=== PATIENT | male | born 1970 | race Caucasian/White ===

== ENCOUNTER → 2016-08-19 | Outpatient (CLI) | payer OTHER ==
--- NOTE | 2016-08-19 23:09 | MR ---
EXAMINATION TYPE: MR thoracic spine wo/w con DATE OF EXAM: 08/19/2016 5:02 PM COMPARISON: NONE HISTORY: Mid/lower back pain x several years, no surgery/trauma CONTRAST: Standard multiplanar, multisequence MRI departmental protocol utilizing 17 mL intravenous MultiHance gadolinium contrast. FINDINGS: The thoracic vertebra have fairly normal spacing and alignment. Thoracic spinal cord has no rmal signal pattern without evidence of edema or mass. There is no paraspinal mass. There is no compr ession fracture. I see no focal bone destruction. There are small posterior disc bulges at C5-6 C6-7. There is a small posterior thoracic disc bulge at T6-7 and T7-8. There is no impingement on the spi nal canal. There is no pathologic enhancement. IMPRESSION: Negative MR scan of the thoracic spine. No evidence of spinal stenosis or any significant thoracic di sc herniation. No fracture.
== END | disposition home or self-care (01) ==
LOC: RADMRIMAIN 15:54
PROVIDERS: ATTEND Physician Assistant Medical
DX: M54.6 Pain in thoracic spine (principal)
CPT/HCPCS: 72157; A9577

== ENCOUNTER 2018-03-16 15:23 | Inpatient (IN) | payer OTHER ==
[2018-03-16] MEDS ORDERED: SODIUM CHLORIDE 0.9% 1,000 ML IV STA (16:04)
[2018-03-16 16:30] LABS: Basophils % (A) 0 %; Eosinophils # (A) 0.1 k/uL (0-0.7); Eosinophils % (A) 2 %; HCT 44.1 % (39.0-53.0); HGB 15.1 gm/dL (13.0-17.5); Lymphocytes # (A) 1.9 k/uL (1.0-4.8); Lymphocytes % (A) 31 %; MCH 30.6 pg (25.0-35.0); MCHC 34.2 g/dL (31.0-37.0); MCV 89.4 fL (80.0-100.0); Mean Platelet Volume 6.8; Monocytes # (A) 0.4 k/uL (0-1.0); Monocytes % (A) 6 %; Neutrophils # (A) 3.6 k/uL (1.3-7.7); Neutrophils % (A) 59 %; Platelet Count 219 k/uL (150-450); RBC 4.93 m/uL (4.30-5.90); RDW 12.8 % (11.5-15.5); WBC 6.2 k/uL (3.8-10.6)
[2018-03-16 16:38] LABS: ALT 42 U/L (21-72); AST 28 U/L (17-59); Albumin 4.7 g/dL (3.5-5.0); Alkaline Phosphatase 84 U/L (38-126); Amylase 74 U/L (30-110); Anion Gap 12 mmol/L; Blood Urea Nitrogen 11 mg/dL (9-20); Calcium 9.3 mg/dL (8.4-10.2); Carbon Dioxide 26 mmol/L (22-30); Chloride 106 mmol/L (98-107); Glucose 94 mg/dL (74-99); Lipase 96 U/L (23-300); Potassium 4.8 mmol/L (3.5-5.1); Sodium 144 mmol/L (137-145); Total Bilirubin 0.6 mg/dL (0.2-1.3); Total Protein 7.7 g/dL (6.3-8.2)
--- NOTE | 2018-03-16 16:38 | ED ---
General Adult HPI - General Chief complaint: Abdominal Pain Stated complaint: US on [facility]bladder [facility] Time Seen by Provider: 03/16/18 15:39 Source: patient Mode of arrival: ambulatory Limitations: no limitations - History of Present Illness Initial comments: 47-year-old male patient presents to the emergency department today for evaluation of right upper back pain. Patient states he has been having this pain consistently over the last 6 weeks. Patient states the pain is constant and always present. Patient states he has had pain into her shoulder and radiating down the right arm. Patient states occasionally the pain will worsen causing him to "catch his breath". Patient states more recently he has had some discomfort to the right anterior chest. Patient states that he has had some increase in the pain after eating a greasy meal. Patient states he has had some mild epigastric discomfort and nausea as well. Patient denies any fevers or chills. Denies any vomiting. States he has had normal bowel movements. Denies any difficulties with urination. Denies any light colored stool, hematochezia, or melena. Denies any hematuria. Patient has never had abdominal surgery in the past. Patient denies any recent rash, back pain, numbness, tingling, dizziness, weakness, hematuria, dysuria, urinary urgency, urinary frequency, headache, visual changes, or any other complaints. - Related Data Home Medications Medication Instructions Recorded Confirmed Meloxicam [Mobic] 7.5 mg PO HS 03/16/18 03/16/18 Allergies Allergy/AdvReac Type Severity Reaction Status Date / Time No Known Allergies Allergy Verified 03/16/18 16:29 Review of Systems ROS Statement: Those systems with pertinent positive or pertinent negative responses have been documented in the HPI. ROS Other: All systems not noted in ROS Statement are negative. Past Medical History Additional Past Medical History / Comment(s): back pain History of Any Multi-Drug Resistant Organisms: None Reported Past Surgical History: Orthopedic Surgery, Tonsillectomy Additional Past Surgical History / Comment(s): right shoulder surgery, right thumb, left foot Past Anesthesia/Blood Transfusion Reactions: No Reported Reaction Past Psychological History: No Psychological Hx Reported Smoking Status: Never smoker Past Alcohol Use History: None Reported Past Drug Use History: None Reported - Past Family History Mother Family Medical History: AFIB, Liver Disease Additional Family Medical History / Comment(s): alcoholic Father Family Medical History: Coronary Artery Disease (CAD), Myocardial Infarction ([facility] ) General Exam Limitations: no limitations General appearance: alert, in no apparent distress, other (This is a well- developed, well-nourished adult male patient in no acute distress. Vital signs upon presentation are temperature 98.2F, pulse 76, respirations 16, blood pressure 161/73, pulse ox 99% on room air.) Eye exam: Present: normal appearance, PERRL, EOMI. Absent: scleral icterus, conjunctival injection, periorbital swelling ENT exam: Present: normal exam, normal oropharynx, mucous membranes moist Respiratory exam: Present: normal lung sounds bilaterally. Absent: respiratory distress, wheezes, rales, rhonchi, stridor Cardiovascular Exam: Present: regular rate, normal rhythm, normal heart sounds. Absent: systolic murmur, diastolic murmur, rubs, gallop, clicks GI/Abdominal exam: Present: soft, tenderness (Mild midepigastric tenderness), normal bowel sounds. Absent: distended, guarding, rebound, rigid Extremities exam: Present: normal inspection, full ROM, normal capillary refill , other (Skin to the upper extremities is pink, warm, and dry. Cap refills less than 3 seconds. Radial pulses 2+ and equal bilaterally.). Absent: tenderness, pedal edema, joint swelling, calf tenderness Back exam: Present: normal inspection. Absent: tenderness Neurological exam: Present: alert, oriented X3, CN II-XII intact Psychiatric exam: Present: normal affect, normal mood Skin exam: Present: warm, dry, intact, normal color. Absent: rash Course Vital Signs 03/16/18 03/16/18 15:27 18:29 Temperature 98.2 F Pulse Rate 76 84 Respiratory 16 18 Rate Blood Pressure 161/73 135/77 O2 Sat by Pulse 99 99 Oximetry EKG Findings - EKG Comments: EKG Findings:: EKG obtained at 1617 shows normal sinus rhythm with a ventricular rate of 70, MS interval 1:30, QRS duration 100, QTC 414, QTC 447. No evidence of ST elevation or depression. Medical Decision Making - Medical Decision Making 47-year-old male patient percents into the emergency department today for evaluation of right shoulder and midepigastric abdominal pain. Physical examination did reveal some midepigastric tenderness. Negative Stein sign. Vital signs are stable with no elevated temperature. Labs reviewed and are unremarkable. Ultrasound of the right upper quadrant abdomen was obtained and did show a thickened gallbladder wall with gallstones consistent with acute and chronic cholecystitis. My attending Dr. Buchanan did discuss the case with the surgeon relationship associate Dr. Yuan who accepts admission. Antibiotics, pain management , and nausea medication will be provided. Patient will be NPO at midnight. - Lab Data Result diagrams: 03/16/18 16:15 03/16/18 16:15 Lab Results 03/16/18 03/16/18 03/16/18 Range/Units 16:15 16:15 16:15 WBC 6.2 (3.8-10.6) k/uL RBC 4.93 (4.30-5.90) m/uL Hgb 15.1 (13.0-17.5) gm/dL Hct 44.1 (39.0-53.0) % MCV 89.4 (80.0-100.0) fL MCH 30.6 (25.0-35.0) pg MCHC 34.2 (31.0-37.0) g/dL RDW 12.8 (11.5-15.5) % Plt Count 219 (150-450) k/uL Neutrophils % 59 % Lymphocytes % 31 % Monocytes % 6 % Eosinophils % 2 % Basophils % 0 % Neutrophils # 3.6 (1.3-7.7) k/uL Lymphocytes # 1.9 (1.0-4.8) k/uL Monocytes # 0.4 (0-1.0) k/uL Eosinophils # 0.1 (0-0.7) k/uL Basophils # 0.0 (0-0.2) k/uL Sodium 144 (137-145) mmol/L Potassium 4.8 (3.5-5.1) mmol/L Chloride 106 (98-107) mmol/L Carbon Dioxide 26 (22-30) mmol/L Anion Gap 12 mmol/L BUN 11 (9-20) mg/dL Creatinine 0.80 (0.66-1.25) mg/dL Est GFR (CKD-EPI)AfAm >90 (>60 ml/min/1.73 sqM) Est GFR (CKD-EPI)NonAf >90 (>60 ml/min/1.73 sqM) Glucose 94 (74-99) mg/dL Calcium 9.3 (8.4-10.2) mg/dL Total Bilirubin 0.6 (0.2-1.3) mg/dL AST 28 (17-59) U/L ALT 42 (21-72) U/L Alkaline Phosphatase 84 (38-126) U/L Total Creatine Kinase 69 (55-170) U/L CK-MB (CK-2) 0.5 (0.0-2.4) ng/mL CK-MB (CK-2) Rel Index 0.7 Troponin I <0.012 (0.000-0.034) ng/mL Total Protein 7.7 (6.3-8.2) g/dL Albumin 4.7 (3.5-5.0) g/dL Amylase 74 (30-110) U/L Lipase 96 (23-300) U/L Urine Color Urine Appearance (Clear) Urine pH (5.0-8.0) Ur Specific Converse (1.001-1.035) Urine Protein (Negative) Urine Glucose (UA) (Negative) Urine Ketones (Negative) Urine Blood (Negative) Urine Nitrite (Negative) Urine Bilirubin (Negative) Urine Urobilinogen (<2.0) mg/dL Ur Leukocyte Esterase (Negative) 03/16/18 Range/Units 18:30 WBC (3.8-10.6) k/uL RBC (4.30-5.90) m/uL Hgb (13.0-17.5) gm/dL Hct (39.0-53.0) % MCV (80.0-100.0) fL MCH (25.0-35.0) pg MCHC (31.0-37.0) g/dL RDW (11.5-15.5) % Plt Count (150-450) k/uL Neutrophils % % Lymphocytes % % Monocytes % % Eosinophils % % Basophils % % Neutrophils # (1.3-7.7) k/uL Lymphocytes # (1.0-4.8) k/uL Monocytes # (0-1.0) k/uL Eosinophils # (0-0.7) k/uL Basophils # (0-0.2) k/uL Sodium (137-145) mmol/L Potassium (3.5-5.1) mmol/L Chloride (98-107) mmol/L Carbon Dioxide (22-30) mmol/L Anion Gap mmol/L BUN (9-20) mg/dL Creatinine (0.66-1.25) mg/dL Est GFR (CKD-EPI)AfAm (>60 ml/min/1.73 sqM) Est GFR (CKD-EPI)NonAf (>60 ml/min/1.73 sqM) Glucose (74-99) mg/dL Calcium (8.4-10.2) mg/dL Total Bilirubin (0.2-1.3) mg/dL AST (17-59) U/L ALT (21-72) U/L Alkaline Phosphatase (38-126) U/L Total Creatine Kinase (55-170) U/L CK-MB (CK-2) (0.0-2.4) ng/mL CK-MB (CK-2) Rel Index Troponin I (0.000-0.034) ng/mL Total Protein (6.3-8.2) g/dL Albumin (3.5-5.0) g/dL Amylase (30-110) U/L Lipase (23-300) U/L Urine Color Light Yellow Urine Appearance Clear (Clear) Urine pH 6.5 (5.0-8.0) Ur Specific Converse 1.005 (1.001-1.035) Urine Protein Negative (Negative) Urine Glucose (UA) Negative (Negative) Urine Ketones Negative (Negative) Urine Blood Negative (Negative) Urine Nitrite Negative (Negative) Urine Bilirubin Negative (Negative) Urine Urobilinogen <2.0 (<2.0) mg/dL Ur Leukocyte Esterase Negative (Negative) - Radiology Data Radiology results: report reviewed, image reviewed Ultrasound of the right upper quadrant abdomen was obtained. Report was reviewed in its entirety. Impression by Dr. Howe shows gallbladder wall thickening and gallstones consistent with acute and chronic cholecystitis. No dilated ducts. Disposition Clinical Impression: Acute cholecystitis Disposition: ADMITTED IP TO THIS [facility] Condition: Serious Referrals: Nba Anderson MD [Primary Care Provider] - 1-2 days Decision to Admit Reason: Admit from [facility] Decision Date: 03/16/18 Decision Time: 19:40
[2018-03-16 16:49] LABS: Creatine Kinase 69 U/L (55-170)
[2018-03-16 17:02] LABS: Creatine Kinase MB 0.5 ng/mL (0.0-2.4); Troponin I <0.012 ng/mL (0.000-0.034)
--- NOTE | 2018-03-16 17:47 | US ---
EXAMINATION TYPE: US abdomen limited DATE OF EXAM: 03/16/2018 COMPARISON: NONE CLINICAL HISTORY: Pain. shoulder and abd pain EXAM MEASUREMENTS: Liver Length: 13.9 cm Gallbladder Wall: 0.4 cm CBD: 0.4 cm Right Kidney: 11.5 x 4.4 x 4.9cm overlying bowel gas Pancreas: not seen due to bowel gas Liver: wnl Gallbladder: contracted with possible stone within and thickened wall Evidence for sonographic Stein's sign: yes CBD: wnl Right Kidney: wnl IMPRESSION: Gallbladder wall thickening and gallstones consistent with acute and chronic cholecystiti s. No dilated ducts.
[2018-03-16 18:40] LABS: Appearance,Urine Clear (Clear); Bilirubin,Urine Negative (Negative); Blood,Urine Negative (Negative); Color,Urine Light Yellow; Glucose,Urine (UA) Negative (Negative); Ketones,Urine Negative (Negative); Leukocyte Esterase,Urine Negative (Negative); Nitrite,Urine Negative (Negative); PH, Urine 6.5 (5.0-8.0); Protein,Urine Negative (Negative); Specific Gravity,Urine 1.005 (1.001-1.035); Urobilinogen,Urine <2.0 mg/dL (<2.0)
[2018-03-16] MEDS ORDERED: ACETAMINOPHEN TAB 325 MG TAB PO PRN (19:33)
[2018-03-16] MEDS ORDERED: ONDANSETRON 4 MG/2 ML VIAL IVP PRN (19:33)
[2018-03-16] MEDS ORDERED: NALOXONE 0.4 MG/ML 1 ML VIAL IV PRN (19:33)
[2018-03-16] MEDS ORDERED: MORPHINE SULFATE 4 MG/ML SYRINGE IV PRN (19:33)
[2018-03-16] MEDS ORDERED: PIPERACILLIN-TAZOBACTAM 3.375 GM in DEXTROSE/WATER 1 50ML.BAG IVPB STA (19:37)
[2018-03-16] MEDS: SODIUM CHLORIDE 0.9% 1,000 ML IV SCH (20:22)
[2018-03-16 23:47] VITALS: BMI 27.5
[2018-03-17] MEDS: PIPERACILLIN-TAZOBACTAM 3.375 GM in DEXTROSE/WATER 1 50ML.BAG IVPB SCH ×3 (05:33→21:44)
[2018-03-17] MEDS: SODIUM CHLORIDE 0.9% 1,000 ML IV SCH ×2 (09:01→21:44)
--- NOTE | 2018-03-17 10:28 | P.GSHP ---
History of Present Illness H&P Date: 03/17/18 Chief Complaint: Right upper back pain mid epigastric 47-year-old male who presented to the emergency room on the day of admission to be evaluated for persistent right upper back pain radiating to mid epigastric area. Patient stated that he had been having the pain for several days. It seemed that the pain with increase in the 80s greasy meal. Patient stated he would have mid epigastric discomfort felt nauseated.vomit. Patient stated he had a normal bowel movement the day before. Denied any light colored stool. No blood in the stool. Additionally patient stated he recently had developed some discomfort going down the right anterior chest wall. Patient stated the symptoms become more symptomatic presented to be evaluated for the above symptoms. In the emergency room ultrasound right upper quadrant of the abdomen showed thickening gallbladder wall with gallstones consistent with acute and chronic cholecystitis. Patient states that he had a cardiac workup for left anterior chest wall discomfort several years ago. The stress test was unremarkable no indication of any coronary artery disease. Patient states he is a very active individual with activity does not experience any chest discomfort positive family history of gallbladder disease mother and sister Patient denies any dizziness lightheadedness shortness of breath or chest pain when questioning continues to report has mid epigastric discomfort with a nausea sensation Past surgical history no abdominal surgeries orthopedic procedures and a tonsillectomy Past medical history osteoarthritis lumbar spine per patient report - Review of Systems Comment: Essentially unremarkable except as mentioned in the present illness Past Medical History Additional Past Medical History / Comment(s): back pain History of Any Multi-Drug Resistant Organisms: None Reported Past Surgical History: Orthopedic Surgery, Tonsillectomy Additional Past Surgical History / Comment(s): right shoulder surgery, right thumb, left foot Past Anesthesia/Blood Transfusion Reactions: No Reported Reaction Past Psychological History: No Psychological Hx Reported Smoking Status: Never smoker Past Alcohol Use History: None Reported Past Drug Use History: None Reported - Past Family History Mother Family Medical History: AFIB, Liver Disease Additional Family Medical History / Comment(s): alcoholic Father Family Medical History: Coronary Artery Disease (CAD), Myocardial Infarction ([facility] ) Medications and Allergies Home Medications Medication Instructions Recorded Confirmed Type Meloxicam [Mobic] 7.5 mg PO HS 03/16/18 03/16/18 History Allergies Allergy/AdvReac Type Severity Reaction Status Date / Time No Known Allergies Allergy Verified 03/16/18 16:29 Surgical - Exam Vital Signs Temp Pulse Resp BP Pulse Ox 98.2 F 76 16 161/73 99 03/16/18 15:27 03/16/18 15:27 03/16/18 15:27 03/16/18 15:27 03/16/18 15:27 GENERAL APPEARANCE: 47-year-old male patient is alert, oriented 3, in no acute distress sitting up in bed. VITAL SIGNS: Reviewed HEENT: Head is normocephalic and atraumatic. Pupils are equal and reactive. The nares are patent. Oropharynx is clear without lesions. NECK: Supple without lymphadenopathy. Traches midline. HEART: S1, S2. Regular rate and rhythm. Denying chest pain no murmur LUNGS: No crackles or wheezes are heard. Good air movement bilaterally ABDOMEN: Soft, mild tenderness right upper quadrant nondistended with good bowel sounds. No peritoneal signs. No palpable organomegaly or masses. EXTREMITIES: Normal skin color and turgor. No cyanosis, rash, ulceration, clubbing or edema. Radial pedal pulses are 2/4 bilaterally. NEUROLOGICAL: No focal deficits. Strength and sensation are grossly intact. Results - Labs 03/16/18 16:15 03/16/18 16:15 Diabetes panel 03/16/18 Range/Units 16:15 Sodium 144 (137-145) mmol/L Potassium 4.8 (3.5-5.1) mmol/L Chloride 106 (98-107) mmol/L Carbon Dioxide 26 (22-30) mmol/L BUN 11 (9-20) mg/dL Creatinine 0.80 (0.66-1.25) mg/dL Glucose 94 (74-99) mg/dL Calcium 9.3 (8.4-10.2) mg/dL AST 28 (17-59) U/L ALT 42 (21-72) U/L Alkaline Phosphatase 84 (38-126) U/L Total Protein 7.7 (6.3-8.2) g/dL Albumin 4.7 (3.5-5.0) g/dL Calcium panel 03/16/18 Range/Units 16:15 Calcium 9.3 (8.4-10.2) mg/dL Albumin 4.7 (3.5-5.0) g/dL Pituitary panel 03/16/18 Range/Units 16:15 Sodium 144 (137-145) mmol/L Potassium 4.8 (3.5-5.1) mmol/L Chloride 106 (98-107) mmol/L Carbon Dioxide 26 (22-30) mmol/L BUN 11 (9-20) mg/dL Creatinine 0.80 (0.66-1.25) mg/dL Glucose 94 (74-99) mg/dL Calcium 9.3 (8.4-10.2) mg/dL Adrenal panel 03/16/18 Range/Units 16:15 Sodium 144 (137-145) mmol/L Potassium 4.8 (3.5-5.1) mmol/L Chloride 106 (98-107) mmol/L Carbon Dioxide 26 (22-30) mmol/L BUN 11 (9-20) mg/dL Creatinine 0.80 (0.66-1.25) mg/dL Glucose 94 (74-99) mg/dL Calcium 9.3 (8.4-10.2) mg/dL Total Bilirubin 0.6 (0.2-1.3) mg/dL AST 28 (17-59) U/L ALT 42 (21-72) U/L Alkaline Phosphatase 84 (38-126) U/L Total Protein 7.7 (6.3-8.2) g/dL Albumin 4.7 (3.5-5.0) g/dL Assessment and Plan Assessment: Impression Present on admission persistent right upper quadrant pain radiating to mid epigastric suspect due to acute on chronic cholecystitis Ultrasound of the abdomen obtained in the emergency room showed gallbladder wall thickening with gallstones consistent with acute on chronic cholecystitis no dilated ducts Plan Scheduled for OR today for a lap cholecystectomy Keep nothing by mouth for procedure Pain control IV fluid for hydration IV Zosyn every 8 hours as ordered anti-emetics as needed DVT and GI prophylaxis The above impression and plan of care have been discussed and directed by signing physician. Marbella Iniguez nurse practitioner acting as scribe for signing physician.
[2018-03-17] MEDS: PANTOPRAZOLE 40 MG/10 ML VIAL IVP SCH (12:29)
[2018-03-17] MEDS ORDERED: IV FLUID CONTINUATION 1,000 ML IV ONE (13:59)
[2018-03-17] MEDS ORDERED: ONDANSETRON 4 MG/2 ML VIAL IVP ONE (14:23)
[2018-03-17] MEDS ORDERED: HEPARIN SODIUM,PORCINE 5,000 UNIT/ML 1 ML VIAL SQ ONE (14:25)
[2018-03-17] MEDS ORDERED: DEXAMETHASONE SOD PHOS (MDV) 100 MG/10 ML VIAL IVP ONE (14:25)
--- NOTE | 2018-03-17 14:26 | P.PN ---
Progress Note - Text Progress Note Date: 03/17/18 The patient has complaints of right quadrant pain. His ultrasound is consistent with chronic and acute cholecystitis. The patient will undergo laparoscopic ostectomy today.
[2018-03-17] MEDS ORDERED: MIDAZOLAM 2 MG/2 ML VIAL ONE (15:06)
[2018-03-17] MEDS ORDERED: fentaNYL (PF) 50 MCG/ML 2 ML AMP ONE (15:06)
[2018-03-17] MEDS ORDERED: GLYCOPYRROLATE 0.2 MG/ML 2 ML VIAL ONE (15:06)
[2018-03-17] MEDS ORDERED: NEOSTIGMINE 1 MG/ML 10 ML VIAL ONE (15:06)
[2018-03-17] MEDS ORDERED: ROCURONIUM BROMIDE 10 MG/ML 10 ML VIAL IV ONE (15:06)
[2018-03-17] MEDS ORDERED: SUCCINYLCHOLINE CHLORIDE 100 MG/5 ML SYR IV ONE (15:06)
[2018-03-17] MEDS ORDERED: LIDOCAINE 1% INJ 10MG/ML (20 ML MDV) ONE (15:06)
[2018-03-17] MEDS ORDERED: KETOROLAC 30 MG/ML 1 ML VIAL ONE (15:06)
[2018-03-17] MEDS ORDERED: PROPOFOL 10 MG/ML 20 ML VIAL IV ONE (15:06)
[2018-03-17] MEDS ORDERED: ONDANSETRON 4 MG/2 ML VIAL ONE (15:06)
[2018-03-17] MEDS ORDERED: LACTATED RINGERS 1,000 ML IV ONE (15:22)
[2018-03-17] MEDS ORDERED: BUPIVACAIN-EPI 0.25%-1:200,000 30 ML VIAL SQ ONE (15:32)
--- NOTE | 2018-03-17 16:01 | P.OP ---
Date of Procedure: 03/17/18 Preoperative Diagnosis: Cholecystitis Postoperative Diagnosis: Cholecystitis Procedure(s) Performed: Laparoscopic cholecystectomy Anesthesia: TAVIA Surgeon: Faizan Yuan Estimated Blood Loss (ml): 5 Pathology: other (Gallbladder) Condition: stable Disposition: PACU Description of Procedure: The patient was placed on the operating table. The patient received a general endotracheal tube anesthesia. The patients abdomen was prepped and draped in the usual sterile fashion. Through an infraumbilical stab incision, the fascia of the anterior abdominal wall was grasped with a pair of Kochers and then the Veress needle was placed in the peritoneal cavity. Position of the Veress needle was confirmed with positive drop test. The abdomen was then insufflated. After adequate insufflation, the 10 mm trocar was placed in the peritoneal cavity. Following this the laparoscope was placed in the peritoneal cavity. The patient was placed in the head-up, right side up position and then a 5 mm trocar was placed in the right lateral and right subcostal position under direct visualization. A 8 mm trocar was placed in the epigastric position. The gallbladder was grasped in the fundus and infundibulum. Traction on the gallbladder was placed in the lateral and the cephalad positions. The triangle of Calot was visualized.. The cystic duct was bluntly dissected until the union of the cystic duct and common bile duct was seen. The cystic duct was then divided and sealed with the Harmonic scissors. A PDS Endoloop was then placed throughout the cystic duct stump. The cystic artery divided and sealed with the Harmonic scissors. The gallbladder was then removed from the liver bed using Harmonic scissors. The gallbladder was then extracted through the epigastric port site. Operative field was checked for any bleeding spots and Harmonic scissors was used to coagulate the liver bed. The abdomen was irrigated. The trocars were removed. The skin was closed using interrupted 3-0 Vicryl suture. Dermabond dressing were applied. The patient tolerated the procedure well.
[2018-03-17] MEDS: fentaNYL (PF) 50 MCG/ML 2 ML AMP IVP ONE ×2 (16:02→16:07)
[2018-03-17] MEDS: HYDROmorphone 0.5 MG/0.5 ML SYRINGE IVP ONE ×4 (16:15→16:37)
[2018-03-18] MEDS: PIPERACILLIN-TAZOBACTAM 3.375 GM in DEXTROSE/WATER 1 50ML.BAG IVPB SCH (05:31)
[2018-03-18] MEDS: SODIUM CHLORIDE 0.9% 1,000 ML IV SCH (07:29)
[2018-03-18] MEDS: PANTOPRAZOLE 40 MG/10 ML VIAL IVP SCH (07:29)
[2018-03-18 08:41] VITALS: BP 116/56; RESP 22; TEMP 97.9
[2018-03-18 09:43] VITALS: PULSE 74
--- NOTE | 2018-03-18 10:44 | P.DS ---
Providers Date of admission: 03/16/18 19:53 Expected date of discharge: 03/18/18 Attending physician: Faizan Yuan Primary care physician: Nba Bocanegra [facility] Course: 47-year-old male presented to the emergency room to be evaluated for persistent right upper quadrant abdominal pain radiating to mid epigastric area. Patient reports that it had been ongoing for several days. Ultrasound obtain in the emergency room report indicated thickening of the gallbladder wall with gallstones consistent with acute on chronic cholecystitis. March 17 the patient did undergo a laparoscopic cholecystectomy for acute on chronic cholecystitis On the day of discharge patient was up ambulatory on the unit pain medication effective for pain control patient is taking plain Motrin . Surgical dressing site dry no nausea no vomiting . Steger to be appropriate to be discharged. Afebrile Impression discharge diagnosis Status post March 17 laparoscopic cholecystectomy for acute cholecystitis Ultrasound obtained was consistent with acute on chronic cholecystitis Present on admission persistent right upper quadrant pain radiating to mid epigastric suspect due to acute on chronic cholecystitis Ultrasound of the abdomen obtained in the emergency room showed gallbladder wall thickening with gallstones consistent with acute on chronic cholecystitis no dilated ducts The above impression and plan of care have been discussed and directed by signing physician. Marbella Iniguez nurse practitioner acting as scribe for signing physician. Patient Condition at Discharge: Serious Plan - Discharge Summary Discharge Rx Participant: No New Discharge Prescriptions: New Acetaminophen Tab [Tylenol Tab] 650 mg PO Q4H #30 tablet Ibuprofen [Motrin] 200 mg PO Q4H #30 tab Continue Meloxicam [Mobic] 7.5 mg PO HS Discharge Medication List Meloxicam [Mobic] 7.5 mg PO HS 03/16/18 [History] Acetaminophen Tab [Tylenol Tab] 650 mg PO Q4H #30 tablet 03/18/18 [Rx] Ibuprofen [Motrin] 200 mg PO Q4H #30 tab 03/18/18 [Rx] Follow up Appointment(s)/Referral(s): Nba Anderson MD [Primary Care Provider] - 1-2 days Faizan Yuan MD [STAFF PHYSICIAN] - 1 Week Activity/Diet/Wound Care/Special Instructions: No tub bath for six weeks. Shower daily. No lifting over 10 pounds for the next 4 weeks. Low-fat diet use [id number] stool softeners for constipation May use ice packs to surgical site. Discharge Disposition: HOME SELF-CARE
== END 2018-03-18 12:00 | disposition home or self-care (01) | DRG 419 ==
LOC: EC 15:23 → 5MS5E 19:53
PROVIDERS: ADMIT Surgery; ATTEND Surgery
PROC: 0FT44ZZ Resection of Gallbladder, Percutaneous Endoscopic Approach (ICD-10-PCS; principal; 2018-03-16)
DX: K80.12 Calculus of gallbladder with acute and chronic cholecystitis without obstruction (principal); Z82.49 Family history of ischemic heart disease and other diseases of the circulatory system; M47.9 Spondylosis, unspecified; Z79.899 Other long term (current) drug therapy; Z81.1 Family history of alcohol abuse and dependence
CPT/HCPCS: 36415; 76705; 80053; 81003; 82150; 82550; 82553; 83690; 84484; 85025; 87040; 88304; 93005; 96361; 96365; 99285

== ENCOUNTER 2019-03-20 20:04 | Emergency (ER) | payer OTHER ==
[2019-03-20 20:16] VITALS: BP 130/80; PULSE 85; RESP 16; TEMP 98.1
--- NOTE | 2019-03-20 20:46 | ED ---
Lower Extremity Injury HPI - General Chief Complaint: Extremity Injury, Lower Stated Complaint: Ankle injury Time Seen by Provider: 03/20/19 20:16 Source: patient Mode of arrival: ambulatory Limitations: no limitations - History of Present Illness Initial Comments: Patient is a 48-year-old male presenting to the emergency Department with complaints of right ankle pain that happened prior to arrival today. Patient states he rolled his ankle today and has been having pain ever since. Patient denies any previous injuries or surgeries to his right ankle. Patient states he is having a hard time putting any weight on it. Patient has no other complaints at this time. Patient is known ALLERGIES. Arrival to ER, vital signs are stable. - Related Data Home Medications Medication Instructions Recorded Confirmed Meloxicam [Mobic] 7.5 mg PO HS 03/16/18 03/16/18 Previous Rx's Medication Instructions Recorded Acetaminophen Tab [Tylenol Tab] 650 mg PO Q4H #30 tablet 03/18/18 Ibuprofen [Motrin] 200 mg PO Q4H #30 tab 03/18/18 Allergies Allergy/AdvReac Type Severity Reaction Status Date / Time No Known Allergies Allergy Verified 03/20/19 20:16 Review of Systems ROS Statement: Those systems with pertinent positive or pertinent negative responses have been documented in the HPI. ROS Other: All systems not noted in ROS Statement are negative. Past Medical History Additional Past Medical History / Comment(s): back pain History of Any Multi-Drug Resistant Organisms: None Reported Past Surgical History: Orthopedic Surgery, Tonsillectomy Additional Past Surgical History / Comment(s): right shoulder surgery, right thumb, left foot Past Anesthesia/Blood Transfusion Reactions: No Reported Reaction Past Psychological History: No Psychological Hx Reported Smoking Status: Never smoker Past Alcohol Use History: None Reported Past Drug Use History: None Reported - Past Family History Mother Family Medical History: AFIB, Liver Disease Additional Family Medical History / Comment(s): alcoholic Father Family Medical History: Coronary Artery Disease (CAD), Myocardial Infarction ([place]) General Exam - General Exam Comments Initial Comments: GENERAL: Well-appearing, well-nourished and in no acute distress. HEAD: Atraumatic, normocephalic. EYES: Pupils equal round and reactive to light, extraocular movements intact, sclera anicteric, conjunctiva are normal. ENT: TMs normal, nares patent, oropharynx clear without exudates. Moist mucous membranes. NECK: Normal range of motion, supple without lymphadenopathy or JVD. LUNGS: Breath sounds clear to auscultation bilaterally and equal. No wheezes rales or rhonchi. HEART: Regular rate and rhythm without murmurs, rubs or gallops. ABDOMEN: Soft, nontender, normoactive bowel sounds. No guarding, no rebound. No masses appreciated. : Deferred EXTREMITIES: Patient has tenderness to palpation medial and lateral malleoli of the right ankle, mild swelling present on the lateral malleolus. Patient has decreased range of motion secondary to pain. Patient has no pain in the right foot or lower leg. Neurovascular intact. No clubbing or cyanosis. NEUROLOGICAL: Cranial nerves II through XII grossly intact. Normal speech, normal gait. PSYCH: Normal mood, normal affect. SKIN: Warm, Dry, normal turgor, no rashes or lesions noted. Limitations: no limitations Course Vital Signs 03/20/19 20:13 Temperature 98.1 F Pulse Rate 85 Respiratory 16 Rate Blood Pressure 130/80 O2 Sat by Pulse 97 Oximetry Medical Decision Making - Medical Decision Making Patient is a 48-year-old male presenting with right ankle pain after rolling it today. On exam patient has pain with palpation in the lateral and medial malleoli. Patient has slightly decreased range of motion secondary to pain and swelling. Patient does have mild swelling around the joint as well. X-rays reveal no acute fractures dislocations. Was discussed with patient that this is most likely an ankle sprain. Patient was given an Aircast to wear for the next few days. Patient will also use ice, compression, elevation. Patient can take Tylenol for pain relief. Patient already takes meloxicam. Patient stable for discharge at this time. He is in agreement with this plan of care. Return parameters were discussed patient he verbalizes understanding. Patient will follow up with PCP or or throat symptoms persist after 2 weeks. Case discussed with Dr. Reyes. Disposition Clinical Impression: Right ankle sprain Disposition: HOME SELF-CARE Condition: Stable Instructions (If sedation given, give patient instructions): Ankle Sprain (ED) Additional Instructions: Please return to the Emergency Department if symptoms worsen or any other concerns. Follow-up with PCP if symptoms persist after 3 weeks. Use icing, compression, elevation, Tylenol for pain. Is patient prescribed a controlled substance at d/c from ED?: No Referrals: [facility],Clinic [Primary Care Provider] - 1-2 days
--- NOTE | 2019-03-20 20:58 | XR ---
EXAMINATION TYPE: XR ankle complete RT DATE OF EXAM: 03/20/2019 COMPARISON: NONE HISTORY: Pain TECHNIQUE: 3 views FINDINGS: There is soft tissue swelling over the lateral malleolus. I see no fracture nor dislocation . Joint spaces are normal. IMPRESSION: Soft tissue swelling. No fracture. Small Achilles calcaneal spur.
== END 2019-03-20 21:28 | disposition home or self-care (01) ==
LOC: EC 20:04
DX: S93.401A Sprain of unspecified ligament of right ankle, initial encounter (principal); Z98.890 Other specified postprocedural states; Z79.1 Long term (current) use of non-steroidal anti-inflammatories (NSAID); X50.1XXA Overexertion from prolonged static or awkward postures, initial encounter; W18.39XA Other fall on same level, initial encounter; Y92.89 Other specified places as the place of occurrence of the external cause
CPT/HCPCS: 99283; 73610; L4350

== ENCOUNTER 2024-12-24 03:53 | Emergency (ER) | payer OTHER ==
[2024-12-24] MEDS: KETOROLAC 15 MG/ML 1 ML VIAL IVP STA (04:47)
[2024-12-24] MEDS: SODIUM CHLORIDE 0.9% 1,000 ML IV ONE (04:47)
[2024-12-24 05:01] LABS: Basophils # (A) 0.02 10*3/uL (0.00-0.10); Basophils % (A) 0.5 %; Eosinophils # (A) 0.03 10*3/uL (0.04-0.35); Eosinophils % (A) 0.7 %; HCT 42.8 % (39.6-50.0); HGB 15.1 g/dL (13.0-17.0); Immature Platelet Fraction 2.1 % (1.1-6.1); Lymphocytes % (A) 19.7 %; MCH 30.5 pg (27.0-32.0); MCHC 35.3 g/dL (32.0-37.0); MCV 86.5 fL (80.0-97.0); Mean Platelet Volume 9.6 fL (9.5-12.2); Monocytes # (A) 0.47 10*3/uL (0.20-1.00); Monocytes % (A) 11.5 %; Neutrophils # (A) 2.72 10*3/uL (1.80-7.70); Neutrophils % (A) 66.9 %; Platelet Count 122 10*3/uL (140-440); RBC 4.95 10*6/uL (4.40-5.60); RDW 12.3 % (11.5-14.5); WBC 4.07 10*3/uL (4.50-10.00)
[2024-12-24 05:23] LABS: ALT 198 U/L (4-49); AST 82 U/L (17-59); African American GFR (CKD) >90 (>60 ml/min/1.73 sqM); Albumin 4.4 g/dL (3.5-5.0); Alkaline Phosphatase 78 U/L (38-126); Amylase 58 U/L (30-110); Anion Gap 10 mmol/L; Blood Urea Nitrogen 15 mg/dL (9-20); Calcium 9.1 mg/dL (8.4-10.2); Carbon Dioxide 24 mmol/L (22-30); Chloride 100 mmol/L (98-107); Glucose 130 mg/dL (74-99); Lipase 81 U/L (23-300); Non-African American GFR(CKD) >90 (>60 ml/min/1.73 sqM); Potassium 4.7 mmol/L (3.5-5.1); Sodium 134 mmol/L (137-145); Total Bilirubin 1.4 mg/dL (0.2-1.3); Total Protein 7.2 g/dL (6.3-8.2)
[2024-12-24 05:36] LABS: Influenza A Not Detected (Not Detectd); Influenza B Not Detected (Not Detectd); RSV Not Detected (Not Detectd)
[2024-12-24 06:05] LABS: Appearance,Urine Clear (Clear); Bilirubin,Urine Negative (Negative); Blood,Urine Trace (Negative); Color,Urine Yellow; Glucose,Urine (UA) Negative (Negative); Ketones,Urine Negative (Negative); Leukocyte Esterase,Urine Negative (Negative); Mucus,Urine Occasional /hpf; Nitrite,Urine Negative (Negative); Protein,Urine Trace (Negative); RBC,Urine 2 /hpf (0-5); Specific Gravity,Urine 1.023 (1.001-1.035); Urobilinogen,Urine <2.0 mg/dL (<2.0); WBC,Urine 1 /hpf (0-5)
--- NOTE | 2024-12-24 06:22 | XR ---
EXAM: XR Chest, 2 Views CLINICAL HISTORY: abdominal pain TECHNIQUE: Frontal and lateral views of the chest. COMPARISON: 04/26/2016 FINDINGS: Lungs: Unremarkable. No consolidation. Pleural space: Unremarkable. Mediastinum: Unremarkable. Normal mediastinal contour. Bones/joints: No acute findings. IMPRESSION: No acute findings.
--- NOTE | 2024-12-24 06:33 | ED ---
General Adult HPI - General Chief complaint: Fever Stated complaint: Fever Time Seen by Provider: 12/24/24 04:20 Source: patient, RN notes reviewed, old records reviewed Mode of arrival: ambulatory Limitations: no limitations - History of Present Illness Initial comments: 54-year-old male who presents with multiple complaints. Has been having somewhat chronic congestion over the last month consisting of a minimally productive cough. Is not a smoker. No history of asthma. States he was on some antibiotics and steroids earlier this month and did feel better but once again is feeling bad. Denies any nausea or vomiting. States that he woke up this morning and thinks he saw blood in his urine which is why in addition to the cough he presented this morning for evaluation. Denies any significant abdominal discomfort but does endorse some mild nonspecific left lower back pain as well as generalized bodyaches. Unknown if this is related to some low-grade fevers at home or not. Denies any history of kidney stones. Denies any dysuria or polyuria. Denies any constipation or diarrhea. Denies any nausea or vomiting. Presents for further evaluation at this time. - Related Data Home Medications Medication Instructions Recorded Confirmed Meloxicam [Mobic] 7.5 mg PO HS 03/16/18 03/16/18 Previous Rx's Medication Instructions Recorded Acetaminophen Tab [Tylenol Tab] 650 mg PO Q4H #30 tablet 03/18/18 Ibuprofen [Motrin] 200 mg PO Q4H #30 tab 03/18/18 Amoxic-Pot Clav 875-125Mg 1 tab PO Q12HR 7 Days #14 tab 12/24/24 [Augmentin 875-125] methylPREDNISolone [Medrol Dose 0 mg PO DIRECTED #1 packet 12/24/24 Pack] Allergies Allergy/AdvReac Type Severity Reaction Status Date / Time No Known Allergies Allergy Verified 12/24/24 04:04 Review of Systems ROS Statement: Those systems with pertinent positive or pertinent negative responses have been documented in the HPI. Review of Systems: CONST: Endorses low-grade fevers at home of 100 F. EYES: Denies blurry vision ENT: Endorses nasal congestion, cough C/V: Denies Chest pain RESP: Denies shortness of breath GI: Denies abdominal pain : Denies dysuria SKIN: Denies rash. MSK: Endorses left lower back pain NEURO: Denies headache ROS Other: All systems not noted in ROS Statement are negative. Past Medical History Additional Past Medical History / Comment(s): back pain History of Any Multi-Drug Resistant Organisms: None Reported Past Surgical History: Orthopedic Surgery, Tonsillectomy Additional Past Surgical History / Comment(s): right shoulder surgery, right thumb, left foot Past Anesthesia/Blood Transfusion Reactions: No Reported Reaction Past Psychological History: No Psychological Hx Reported Smoking Status: Never smoker Past Alcohol Use History: None Reported Past Drug Use History: None Reported - Past Family History Mother Family Medical History: AFIB, Liver Disease Additional Family Medical History / Comment(s): alcoholic Father Family Medical History: Coronary Artery Disease (CAD), Myocardial Infarction ([place]) General Exam - General Exam Comments Initial Comments: General: Appears in no acute distress. HEAD: Normal with no signs of head trauma. EYES: EOMI. ENT: Hearing grossly intact, normal oropharynx. RESPIRATORY: Clear breath sounds bilaterally. No wheezes, rales, or rhonchi. No hypoxia. No respiratory distress. C/V: Regular rate and rhythm. S1 and S2 auscultated, no edema, peripheral pulses 2+ and intact throughout ABD: Abd is soft, nontender, nondistended. No flank pain. No lower abdominal pain. No guarding or rebound tenderness. No peritoneal signs. EXT: Normal range of motion, no obvious deformity. Back pain is not reproducible on palpation. Somewhat there with movement but he describes it more as generalized bodyaches. SKIN: No rashes or lesions observed on exposed skin. NEURO: Alert and oriented x 4. Limitations: no limitations Course Vital Signs 12/24/24 12/24/24 04:01 04:23 Temperature 97.9 F Pulse Rate 86 Respiratory 18 18 Rate Blood Pressure 151/79 O2 Sat by Pulse 99 Oximetry Medical Decision Making - Medical Decision Making Was pt. sent in by a medical professional or institution (, PA, UPHOLSTERER APPRENTICE, urgent care, hospital, or care home...) When possible be specific @ -No Did you speak to anyone other than the patient for history (EMS, parent, family, police, friend...)? What history was obtained from this source @ -No Did you review nursing and triage notes (agree or disagree)? Why? @ -I reviewed and agree with nursing and triage notes Were old charts reviewed (outside hosp., previous admission, EMS record, old EKG, old radiological studies, urgent care reports/EKG's, care home records)? Report findings @ -No old charts were reviewed Differential Diagnosis (chest pain, altered mental status, abdominal pain women, abdominal pain men, vaginal bleeding, weakness, fever, dyspnea, syncope, headache, dizziness, GI bleed, back pain, seizure, CVA, palpatations, mental health, musculoskeletal)? @ -Viral syndrome, UTI, pneumonia. This list is not all inclusive. EKG interpreted by me (3pts min.). @ -As above X-rays interpreted by me (1pt min.). @ -Chest x-ray shows no obvious acute cardiopulmonary process. CT interpreted by me (1pt min.). @ -None done U/S interpreted by me (1pt. min.). @ -None done What testing was considered but not performed or refused? (CT, X-rays, U/S, labs)? Why? @ -None What meds were considered but not given or refused? Why? @ -None Did you discuss the management of the patient with other professionals (professionals i.e. , PA, UPHOLSTERER APPRENTICE, lab, RT, psych nurse, web content & social media manager, advertising writer, teacher, staff readiness officer, casework manager)? Give summary @ -No Was smoking cessation discussed for >3mins.? @ -No Was critical care preformed (if so, how long)? @ -No Were there social determinants of health that impacted care today? How? (Homelessness, low income, unemployed, alcoholism, drug addiction, transportation, low edu. Level, literacy, decrease access to med. care, fpc, rehab)? @ -No Was there de-escalation of care discussed even if they declined (Discuss DNR or withdrawal of care, Hospice)? DNR status @ -No What co-morbidities impacted this encounter? (DM, HTN, Smoking, COPD, CAD, Cancer, CVA, ARF, Chemo, Hep., AIDS, mental health diagnosis, sleep apnea, morbid obesity)? @ -None Was patient admitted / discharged? Hospital course, mention meds given and route, prescriptions, significant lab abnormalities, going to OR and other pertinent info. @ -Patient presents with multiple nonspecific symptoms. Seems more viral in nature however we will obtain general workup. Had 1 episode of hematuria this morning as well. May be secondary to dehydration. Primary complaint is upper respiratory symptoms. He will be given IV fluids and Toradol. Vitals within acceptable limits. Chest x-ray shows no obvious acute cardiopulmonary process. Labs are remarkable for nonspecific elevation in ALT, and mild elevation in AST with no significant abdominal pain or complaints. Urinalysis unremarkable. Trace blood but no significant blood and no evidence of infection. Viral swabs are negative. On reevaluation, patient is resting comfortably at this time. We did discuss results of his workup. I did offer CT of his abdomen pelvis considering the trace bleeding as well as lower back pain however this is all resolved with Toradol and he declines at this time which I believe is reasonable. Both agreed this is reasonable to defer CT at this time. I did discuss with him and I am concerned still for viral syndrome versus possible tracheobronchitis. Patient will be discharged home on Augmentin as well as a Medrol Dosepak for tracheobronchitis. He was in agreement this plan. Recommend follow-up with his PCP in the next 1 to 3 days. I instructed the patient to follow up with their PCP in the next 1-3 days. I explained that the patient should return to the emergency department if they experience any worsening symptoms. Strict return precautions were discussed with the patient. The patient expressed understanding of these instructions. I answered all questions that the patient had. The patient was discharged home in good condition with their prescriptions and follow up information. Undiagnosed new problem with uncertain prognosis? @ -No Drug Therapy requiring intensive monitoring for toxicity (Heparin, Nitro, Insulin, Cardizem)? @ -No Were any procedures done? @ -No Diagnosis/symptom? @ -Tracheobronchitis, thrombocytopenia Acute, or Chronic, or Acute on Chronic? @ -Acute Uncomplicated (without systemic symptoms) or Complicated (systemic symptoms)? @ -Uncomplicated Side effects of treatment? @ -No Exacerbation, Progression, or Severe Exacerbation? @ -No Poses a threat to life or bodily function? How? (Chest pain, [place], [place], pneumonia, PE, COPD, DKA, ARF, appy, cholecystitis, CVA, Diverticulitis, Homicidal, Suicidal, threat to staff... and all critical care pts) @ -Unlikely at this time - Lab Data Result diagrams: 12/24/24 04:50 12/24/24 04:50 Lab Results 06/28/25 06/28/25 06/28/25 Range/Units 04:50 04:50 04:50 WBC 4.07 L (4.50-10.00) 10*3/uL RBC 4.95 (4.40-5.60) 10*6/uL Hgb 15.1 (13.0-17.0) g/dL Hct 42.8 (39.6-50.0) % MCV 86.5 (80.0-97.0) fL MCH 30.5 (27.0-32.0) pg MCHC 35.3 (32.0-37.0) g/dL Plt Count 122 L (140-440) 10*3/uL MPV 9.6 (9.5-12.2) fL Immature Gran % (Auto) 0.7 % Neutrophils % 66.9 % Lymphocytes % 19.7 % Monocytes % 11.5 % Eosinophils % 0.7 % Basophils % 0.5 % Immature Gran # 0.03 (0.00-0.04) 10*3/uL Neutrophils # 2.72 (1.80-7.70) 10*3/uL Lymphocytes # 0.80 L (0.90-5.00) 10*3/uL Monocytes # 0.47 (0.20-1.00) 10*3/uL Eosinophils # 0.03 L (0.04-0.35) 10*3/uL Basophils # 0.02 (0.00-0.10) 10*3/uL Immature Plt Fraction 2.1 (1.1-6.1) % Sodium 134 L (137-145) mmol/L Potassium 4.7 (3.5-5.1) mmol/L Chloride 100 (98-107) mmol/L Carbon Dioxide 24 (22-30) mmol/L Anion Gap 10 mmol/L BUN 15 (9-20) mg/dL Creatinine 0.67 (0.66-1.25) mg/dL Est GFR (CKD-EPI)AfAm >90 (>60 ml/min/1.73 sqM) Est GFR (CKD-EPI)NonAf >90 (>60 ml/min/1.73 sqM) Glucose 130 H (74-99) mg/dL Plasma Lactic Acid [place] 1.0 (0.7-2.0) mmol/L Calcium 9.1 (8.4-10.2) mg/dL Total Bilirubin 1.4 H (0.2-1.3) mg/dL AST 82 H (17-59) U/L ALT 198 H (4-49) U/L Alkaline Phosphatase 78 (38-126) U/L Total Protein 7.2 (6.3-8.2) g/dL Albumin 4.4 (3.5-5.0) g/dL Amylase 58 (30-110) U/L Lipase 81 (23-300) U/L Urine Color Urine Appearance (Clear) Urine pH (5.0-8.0) Ur Specific [place] (1.001-1.035) Urine Protein (Negative) Urine Glucose (UA) (Negative) Urine Ketones (Negative) Urine Blood (Negative) Urine Nitrite (Negative) Urine Bilirubin (Negative) Urine Urobilinogen (<2.0) mg/dL Ur Leukocyte Esterase (Negative) Urine RBC (0-5) /hpf Urine WBC (0-5) /hpf Urine Mucus (None) /hpf Influenza Type A (PCR) (Not Detectd) Influenza Type B (PCR) (Not Detectd) RSV (PCR) (Not Detectd) SARS-CoV-2 (PCR) (Not Detectd) 12/24/24 12/24/24 Range/Units 04:50 05:38 WBC (4.50-10.00) 10*3/uL RBC (4.40-5.60) 10*6/uL Hgb (13.0-17.0) g/dL Hct (39.6-50.0) % MCV (80.0-97.0) fL MCH (27.0-32.0) pg MCHC (32.0-37.0) g/dL Plt Count (140-440) 10*3/uL MPV (9.5-12.2) fL Immature Gran % (Auto) % Neutrophils % % Lymphocytes % % Monocytes % % Eosinophils % % Basophils % % Immature Gran # (0.00-0.04) 10*3/uL Neutrophils # (1.80-7.70) 10*3/uL Lymphocytes # (0.90-5.00) 10*3/uL Monocytes # (0.20-1.00) 10*3/uL Eosinophils # (0.04-0.35) 10*3/uL Basophils # (0.00-0.10) 10*3/uL Immature Plt Fraction (1.1-6.1) % Sodium (137-145) mmol/L Potassium (3.5-5.1) mmol/L Chloride (98-107) mmol/L Carbon Dioxide (22-30) mmol/L Anion Gap mmol/L BUN (9-20) mg/dL Creatinine (0.66-1.25) mg/dL Est GFR (CKD-EPI)AfAm (>60 ml/min/1.73 sqM) Est GFR (CKD-EPI)NonAf (>60 ml/min/1.73 sqM) Glucose (74-99) mg/dL Plasma Lactic Acid [place] (0.7-2.0) mmol/L Calcium (8.4-10.2) mg/dL Total Bilirubin (0.2-1.3) mg/dL AST (17-59) U/L ALT (4-49) U/L Alkaline Phosphatase (38-126) U/L Total Protein (6.3-8.2) g/dL Albumin (3.5-5.0) g/dL Amylase (30-110) U/L Lipase (23-300) U/L Urine Color Yellow Urine Appearance Clear (Clear) Urine pH 6.0 (5.0-8.0) Ur Specific [place] 1.023 (1.001-1.035) Urine Protein Trace H (Negative) Urine Glucose (UA) Negative (Negative) Urine Ketones Negative (Negative) Urine Blood Trace H (Negative) Urine Nitrite Negative (Negative) Urine Bilirubin Negative (Negative) Urine Urobilinogen <2.0 (<2.0) mg/dL Ur Leukocyte Esterase Negative (Negative) Urine RBC 2 (0-5) /hpf Urine WBC 1 (0-5) /hpf Urine Mucus Occasional H (None) /hpf Influenza Type A (PCR) Not Detected (Not Detectd) Influenza Type B (PCR) Not Detected (Not Detectd) RSV (PCR) Not Detected (Not Detectd) SARS-CoV-2 (PCR) Not Detected (Not Detectd) Disposition Clinical Impression: Tracheobronchitis, Thrombocytopenia Disposition: HOME SELF-CARE Condition: Good Instructions (If sedation given, give patient instructions): Acute Bronchitis (ED), Thrombocytopenia (ED) Additional Instructions: Workup today shows thrombocytopenia minimally elevated liver function test. Follow-up with your PCP to obtain repeat laboratory studies in the next 1 to 2 weeks. Return to the ER for any worsening symptoms. Diagnosis is tracheobronchitis. Complete course of antibiotics and Medrol Dosepak. Prescriptions: Amoxic-Pot Clav 875-125Mg [Augmentin 875-125] 1 tab PO Q12HR 7 Days #14 tab methylPREDNISolone [Medrol Dose Pack] 0 mg PO DIRECTED #1 packet Is patient prescribed a controlled substance at d/c from ED?: No Referrals: Eliseo Jimenez DO [Primary Care Provider] - 1-2 days Time of Disposition: 06:35
[2024-12-24] MEDS: AMOXIC-POT CLAV 875-125MG 1 EACH TAB PO STA (06:50)
[2024-12-24 07:02] VITALS: BP 117/75; PULSE 76; RESP 16; TEMP 99.1
== END 2024-12-24 06:53 | disposition home or self-care (01) ==
LOC: EC 03:53
DX: J40 Bronchitis, not specified as acute or chronic (principal); D69.6 Thrombocytopenia, unspecified
CPT/HCPCS: 36415; 80053; 82150; 83605; 83690; 85025; 81001; 87636; 71046; 99284; 96374; 96361; J1885